=== PATIENT | female | born 1975 | race Caucasian/White ===

== ENCOUNTER 2020-01-30 12:10 | Emergency (ER) | payer OTHER ==
[~2020-01-30] VITALS: Ht 167.6 cm; Wt 69.9 kg
[2020-01-30 12:19] VITALS: Ht 167.6 cm; Wt 69.9 kg
[2020-01-30 13:47] VITALS: BP 125/80
== END 2020-01-30 13:47 | disposition home or self-care (01) ==
LOC: ED 12:10
DX: M25.512 Pain in left shoulder (principal); R20.2 Paresthesia of skin
CPT/HCPCS: Q0092